=== PATIENT | female | born 1940 | race Caucasian/White ===

== ENCOUNTER 2016-10-19 09:24 | Outpatient (CLI) | payer MEDICARE, OTHER | END 2016-10-19 09:25 | disposition home or self-care (01) | DX: E78.2 Mixed hyperlipidemia (principal); E03.9 Hypothyroidism, unspecified; I10 Essential (primary) hypertension; K21.9 Gastro-esophageal reflux disease without esophagitis; Z79.899 Other long term (current) drug therapy ==

== ENCOUNTER 2016-11-14 06:58 | Outpatient (CLI) | payer MEDICARE, OTHER ==
--- NOTE | 2016-11-14 08:51 | CARDIAC PROCEDURE NOTE ---
DATE OF SERVICE: 11/14/2016 00:00:00 PROCEDURE: Jesus protocol treadmill for echocardiographic imaging. INDICATIONS: A 76-year-old lady with atypical exertional shoulder and arm pain. DETAILS OF PROCEDURE: The patient was exercised in the standard fashion on the Jesus protocol for 6 m inutes. Procedure was terminated because of significant hypertensive response with a systolic pressur e of 220. She did achieve 85% maximum predicted heart rate. She experienced no symptoms. Her EKG demo nstrated no significant ST segment changes. There was no significant ectopy. IMPRESSION 1. Exercise treadmill negative for evidence of ischemia. See echocardiographic report for details. 2. Severe hypertensive response to exercise. This can only in part be attributed to the temporary lac [place] of beta blockade and she should be offered more aggressive blood pressure management. JOB #: [id number] EXT JOB #:[id number]
--- NOTE | 2016-11-14 09:13 | XRAY Report ---
TWO-VIEW CHEST: 11/14/2016 CLINICAL INDICATION: Bilateral shoulder pain, hypertension, nausea. FINDINGS: Frontal and lateral views of the chest are compared to previous CT of 10/18/2014. The car diac silhouette is within normal limits. The lungs are clear. No effusion or pneumothorax is presen t. IMPRESSION: NORMAL CHEST. JOB #: [id number] EXT JOB #:[id number]
[2016-11-15 19:15] VITALS: BP 182/84
== END 2016-11-14 06:59 | disposition home or self-care (01) ==
LOC: DI 06:58
PROVIDERS: ATTEND Internal Medicine
DX: M25.511 Pain in right shoulder (principal); M25.512 Pain in left shoulder; I10 Essential (primary) hypertension; R11.0 Nausea
CPT/HCPCS: 71020; 93350

== ENCOUNTER 2017-04-09 15:15 | Outpatient (CLI) | payer MEDICARE, OTHER | END 2017-04-09 15:16 | disposition home or self-care (01) | LOC: LAB.R 15:15 | PROVIDERS: ATTEND Physician Assistant Medical | DX: R89.9 Unspecified abnormal finding in specimens from other organs, systems and tissues (principal) | CPT/HCPCS: 85651; 86140 ==

== ENCOUNTER 2017-06-09 09:23 | Emergency (ER) | payer MEDICARE, OTHER ==
[2017-06-09 10:54] LABS: BILIRUBIN,URINE NEGATIVE (NEGATIVE)
[2017-06-09 10:55] VITALS: BP 182/66
[2017-06-09 10:55] LABS: UA CHARGE (STRIP ONLY) YES; UR CULTURE IF IND NOT INDICATED
--- NOTE | 2017-06-09 11:06 | ED Physician Documentation ---
PD HPI ABD PAIN - Stated complaint Stated Complaint: CONSTIPATION - Chief complaint Chief Complaint: Abd Pain - Additional information Additional information: 76-year-old female with history of chronic constipation presents with abdominal and rectal pain today in the setting of no bowel movements for 3-4 days. She has had some diarrhea 4 days ago which is not atypical for her, use some Vaseline and digital disimpaction at home to have a bowel movement and then did not have another since then. Her abdominal pain is lower abdomen cramping and less severe than her rectal pain. She had a bowel movement prior to my evaluation in the emergency department with resolution of her symptoms. She reports constipation for several years, and uses several different methods to control including stool softeners, fiber supplements, intermittent MiraLAX, enemas. She has had no fevers no vomiting no localizing abdominal pain. Review of Systems Ten Systems: 10 systems reviewed and negative Constitutional: reports: Reviewed and negative Cardiac: reports: Reviewed and negative Respiratory: reports: Reviewed and negative GI: reports: Reviewed and negative : reports: Reviewed and negative PD PAST MEDICAL HISTORY - Past Medical History Past Medical History: Yes Cardiovascular: Hypertension, High cholesterol Respiratory: None, Other Endocrine/Autoimmune: None, Systemic lupus erythematosus GI: GERD, Colon polyps : None HEENT: None Psych: Anxiety Musculoskeletal: None Derm: None - Past Surgical History General: Colonoscopy Ortho: Arthroscopic surgery /MANAGER OUTPATIENT: Hysterectomy, Other HEENT: Cataracts - Present Medications Home Medications: Ambulatory Orders Medication Instructions Recorded Confirmed Atorvastatin [Lipitor] 10 mg ORAL DAILY 09/21/13 06/09/17 Levothyroxine Sodium [Synthroid] 25 mg ORAL DAILY 09/21/13 06/09/17 Metoprolol Succinate [Toprol Xl] 100 mg PO BID 09/21/13 06/09/17 Omeprazole [PriLOSEC] 20 mg ORAL DAILY 09/21/13 06/09/17 Potassium Chloride [Klor-Con M15] 10 meq PO DAILY 09/21/13 06/09/17 hydroCHLOROthiazide 12.5 mg PO DAILY 09/21/13 06/09/17 [Hydrochlorothiazide] Lisinopril 40 mg PO DAILY 06/09/17 06/09/17 - Allergies Allergies/Adverse Reactions: Allergies Allergy/AdvReac Type Severity Reaction Status Date / Time Sulfa (Sulfonamide Allergy Unknown Verified 06/09/17 09:30 Antibiotics) - Social History Does the pt smoke?: No Smoking Status: Never smoker Does the pt drink ETOH?: No Does the pt have substance abuse?: No PD ED PE NORMAL - Vitals Vital signs reviewed: Yes - General General: Alert and oriented X 3, No acute distress - HEENT HEENT: PERRL - Neck Neck: Supple, no meningeal sign - Cardiac Cardiac: RRR, No murmur - Respiratory Respiratory: Clear bilaterally - Abdomen Abdomen: Normal bowel sounds, Soft, Non tender, Non distended - Derm Derm: Warm and dry - Extremities Extremities: No deformity - Neuro Neuro: Alert and oriented X 3 - Psych Psych: Normal mood, Normal affect Results - Vitals Vitals: Vital Signs - 24 hr 06/09/17 06/09/17 09:28 10:54 Temperature 36.4 C L 36.5 C Heart Rate 64 55 L Respiratory 18 15 Rate Blood Pressure 170/75 H 182/66 H O2 Saturation 99 97 Oxygen O2 Source Room air - Labs Labs: Laboratory Tests 06/09/17 10:40 Urine Color YELLOW Urine Clarity CLEAR Urine pH 7.0 Ur Specific [place] 1.015 Urine Protein NEGATIVE Urine Glucose (UA) NEGATIVE Urine Ketones NEGATIVE Urine Occult Blood NEGATIVE Urine Nitrite NEGATIVE Urine Bilirubin NEGATIVE Urine Urobilinogen 0.2 (NORMAL) Ur Leukocyte Esterase NEGATIVE Ur Microscopic Review NOT INDICATED Urine Culture Comments NOT INDICATED PD MEDICAL DECISION MAKING - ED course Complexity details: considered differential, d/w patient, d/w family ED course: 76-year-old female with long-standing constipation, reports that symptoms are similar to usual but she was having no success with her normal treatments at home and had significant pain in her rectum. She had a bowel movement in the emergency department with complete resolution of her symptoms, she was well- appearing with normal abdominal exam. She was hypertensive which she is aware of and will discuss with her primary care doctor she is having no symptoms related to this. I do not suspect significant intra-abdominal process Such as infection, cardiovascular disease, or bowel perforationgiven that her symptoms have totally resolved. Departure - Departure Disposition: 01 Home, Self Care Clinical Impression: Constipation Qualifiers: Constipation type: unspecified constipation type Qualified Code(s): K59.00 - Constipation, unspecified Condition: Good Instructions: ED Constipation Ch Follow-Up: Esther Odonnell PA-C [Primary Care Provider] - Comments: Return to the emergency department if you develop any new symptoms such as pain in 1 spot, severe pain, fevers, vomiting. You might try decreasing her fiber intake somewhat, sometimes too much fiber can cause constipation. Follow-up with your primary care doctor regarding your chronic constipation for further testing and recommendations.
== END 2017-06-09 11:14 | disposition home or self-care (01) ==
LOC: ED 09:23
DX: K59.00 Constipation, unspecified (principal); I10 Essential (primary) hypertension; E78.00 Pure hypercholesterolemia, unspecified; K21.9 Gastro-esophageal reflux disease without esophagitis; Z86.010 Personal history of colon polyps; M32.9 Systemic lupus erythematosus, unspecified
CPT/HCPCS: 81001; 81003; 87086; 99283

== ENCOUNTER 2017-06-10 10:26 | Outpatient (CLI) | payer MEDICARE, OTHER ==
[2017-06-10] MEDS ORDERED: IOPAMIDOL-300 100 ML VIAL ONE (10:46)
[2017-06-10 10:52] LABS: CREATININE 0.6 mg/dL (0.4-1.0)
[2017-06-10] MEDS ORDERED: IOPAMIDOL-300 100 ML VIAL IVP ONE (12:22)
--- NOTE | 2017-06-11 09:18 | CT Report ---
<H1.> EXAM: CT ANGIOGRAM CHEST, ABDOMEN AND PELVIS EXAM DATE: 06/10/2017 12:27 PM. CLINICAL HISTORY: Thoracic pain, hypertension, benign. COMPARISONS: CT chest from 10/18/2014. CT abdomen and pelvis from 10/12/2013. Chest x-ray from 2006. TECHNIQUE: Routine axial helical CT angiographic imaging was performed through the chest, abdomen, and pelvis. I V Contrast: 100 mL of Isovue-300. Reconstructions: Coronal, sagittal, and 3D MIP reconstructions of t he aorta. In accordance with CT protocol optimization, one or more of the following dose reduction techniques w ere utilized for this exam: automated exposure control, adjustment of mA and/or KV based on patient s ize, or use of iterative reconstructive technique. FINDINGS: Vascular Structures: Thoracic aorta is normal in caliber. No aneurysm or dissection. Maximal size of the mid ascending aorta measures 2.8-2.9 cm. Maximal size of the aortic arch measures 2.2-2.3 cm. Mid descending thoracic aorta measures up to 2.6-2.7 cm. Calcified and noncalcified plaque is seen in th e aortic arch and descending thoracic aorta. Noncalcified plaque is seen in the proximal left subclav cookie artery without severe stenosis. No dissection. No evidence of pulmonary embolus. No evidence of a bdominal aortic aneurysm or dissection. Abdominal aorta below the SMA measures 1.7-1.8 cm. Abdominal aorta proximal to the aortic bifurcation measures 1.3-1.4 cm. Calcified and noncalcified plaque is se en in the abdominal aorta. Mesenteric vasculature is widely patent. Renal arteries are patent without stenosis. Calcified and noncalcified plaque is seen in the common iliac vessels. No dissection or oc clusion. Lungs/Pleura: Basilar scar/atelectasis. No endobronchial obstruction or consolidation. No pneumothora x or pleural effusions. No parenchymal cavities. 2 mm nodule in the left lower lobe is stable. Mediastinum: Visualized thyroid gland demonstrates a heterogeneous right thyroid lobe nodule measurin g approximate 7 mm as well as a 9 mm nodule in the left inferior lobe of the thyroid gland. Several s ubcentimeter lymph nodes are seen as well as hilar lymph nodes are seen, the largest right paratrache al measuring 7 mm in short axis dimension. No enlarged inferior cervical or axillary lymph nodes are evident. Heart is mildly enlarged. Trace pericardial effusion. Abdominal Organs: No hypervascular liver lesions. Within the left lobe of liver is a low-attenuation lesion measuring 8 mm which is again seen and unchanged, as well as an inferior right hepatic lobe le gino seen just cephalad to the right kidney which appears less prominent measuring on today's study 1 3 mm. Adrenals, spleen and pancreas are unremarkable. Kidneys enhance symmetrically. No nephrolithias is. No hydronephrosis. No ureteral dilatation or ureteral calculi. Peritoneal Cavity: Stomach is nondistended. Included portions of the small bowel are unremarkable. No bowel obstruction. Appendix is normal. Small volume of stool seen in the colon. No diverticulitis. N o enlarged mesenteric or retroperitoneal lymph nodes. No intra-abdominal fluid collections. Pelvic Organs: Include portions of the pelvis are unremarkable. The entire pelvis is not included. Bones: Degenerative changes are seen in the lower cervical and thoracic spine as well as the lumbar s pine. There is grade 1/2 anterolisthesis of L4 on L5 likely due to facet arthropathy. Most pronounced intervertebral disk degenerative changes are seen at L1-L2 and L5-S1. Mild levoscoliosis of the lumb ar spine. Other: None. IMPRESSION: 1. No evidence of thoracic aortic aneurysm, abdominal aortic aneurysm or iliac artery aneurysm. No or dissection. Calcified and noncalcified plaque in the aortic arch, descending thoracic aortic, abdome n and iliac vessels. No dissection. Patent mesenteric vasculatures and renal arteries without evidenc e for significant stenosis. 2. Subpleural 2 mm left lower lobe nodule, stable. No new parenchymal nodules. No consolidation. 3. Numerous subcentimeter mediastinal and hilar lymph nodes, stable. 4. Bilateral thyroid nodules of which the left thyroid lobe nodule was seen on 10/18/2014. If not pre viously assessed, particularly the right thyroid nodule which may be new, then further detail with [facility] ultrasound recommended. 5. Low-attenuation hepatic lesion stable in the left lobe and the posterior right lobe decreased in s ize. No new hepatic lesions. [facility] Referring Provider Line: [phone] SITE ID: [id number]
== END 2017-06-10 10:27 | disposition home or self-care (01) ==
LOC: LAB 10:26
PROVIDERS: ATTEND Physician Assistant Medical
DX: M54.6 Pain in thoracic spine (principal); I10 Essential (primary) hypertension; R07.9 Chest pain, unspecified
CPT/HCPCS: 36415; 71275; 74175; 82565; 84520; Q9967

== ENCOUNTER 2017-06-27 11:54 | Outpatient (CLI) | payer MEDICARE, OTHER ==
--- NOTE | 2017-06-28 08:50 | Ultrasound Report ---
THYROID ULTRASOUND: 06/27/2017 CLINICAL INDICATION: Multiple nodules incidentally noted on chest CT 2016. TECHNIQUE: Real-time scanning was performed with account services representative static images obtained. FINDINGS: The right lobe measures 4.1 x 1.7 x 1.3 cm, and the left lobe measures 4.0 x 1.4 x 1.1 cm. The isthmus measures 2 mm. There are multiple bilateral thyroid nodules, measuring up to 1.4 cm on the right and 1.4 cm on the left. No adenopathy is identified. IMPRESSION: Multinodular thyroid. By LULU criteria, no fine needle aspiration is recommended at this time. TD: 06/27/2017 18:49 ABRAHAM
== END 2017-06-27 11:55 | disposition home or self-care (01) ==
LOC: DI 11:54
PROVIDERS: ATTEND Physician Assistant Medical
DX: E04.2 Nontoxic multinodular goiter (principal)
CPT/HCPCS: 76536

== ENCOUNTER 2017-10-24 09:12 | Outpatient (CLI) | payer MEDICARE, OTHER ==
[2017-10-24 18:15] LABS: ALBUMIN 4.6 g/dL (3.2-5.5); ALBUMIN/GLOBULIN RATIO 1.7 (1.0-2.2); ALKALINE PHOSPHATASE 61 IU/L (42-121); ALT ALANINE AMINOTRANSFERASE 25 IU/L (10-60); AST ASPARTATE AMINOTRANSFERASE 28 IU/L (10-42); BILIRUBIN,TOTAL 0.5 mg/dL (0.2-1.0); BUN - BLOOD UREA NITROGEN 15 mg/dL (6-20); CALCIUM 9.8 mg/dL (8.5-10.3); CARBON DIOXIDE - CO2 27 mmol/L (21-32); CHLORIDE 98 mmol/L (101-111); CHOL/HDL RATIO 3.5 (<4.4); CHOLESTEROL 176 mg/dL; CREATININE 0.7 mg/dL (0.4-1.0); GFR - MDRD 82 (>89); GLUCOSE 101 mg/dL (70-100); HDL CHOLESTEROL 50 mg/dL; LDL CHOLESTEROL,CALCULATED 107 mg/dL; LDL/HDL RATIO 2.1 (<4.4); SODIUM 133 mmol/L (135-145); TOTAL PROTEIN 7.3 g/dL (6.7-8.2); VLDL CHOLESTEROL 19 mg/dL
[2017-10-24 18:19] LABS: BASOPHILS # (AUTO) 0.1 10^3/uL (0.0-0.1); BASOPHILS % (AUTO) 1.3 %; EOSINOPHILS # (AUTO) 0.4 10^3/uL (0.0-0.7); HGB - HEMOGLOBIN 13.2 g/dL (12.0-16.0); LYMPHOCYTES # (AUTO) 2.2 10^3/uL (1.5-3.5); LYMPHOCYTES % (AUTO) 33.8 %; MEAN CORPUSCULAR HEMOGLOBIN 31.8 pg (27.0-31.0); MEAN CORPUSCULAR HGB CONC 33.6 g/dL (32.0-36.0); MEAN CORPUSCULAR VOLUME 94.5 fL (81.0-99.0); MEAN PLATELET VOLUME 9.5 fL (7.9-10.8); MONOCYTES # (AUTO) 0.5 10^3/uL (0.0-1.0); MONOCYTES % (AUTO) 7.2 %; NEUTROPHILS # (AUTO) 3.2 10^3/uL (1.5-6.6); NEUTROPHILS % (AUTO) 50.7 %; PLT - PLATELET COUNT 215 10^3/uL (130-450); RED BLOOD COUNT 4.17 10^6/uL (4.20-5.40); RED CELL DISTRIBUTION WIDTH 12.4 % (12.0-15.0); WHITE BLOOD COUNT 6.4 x10^3/uL (4.8-10.8)
== END 2017-10-24 09:13 | disposition home or self-care (01) ==
LOC: LAB.F 09:12
PROVIDERS: ATTEND Physician Assistant Medical
DX: I10 Essential (primary) hypertension (principal); Z79.899 Other long term (current) drug therapy; E78.2 Mixed hyperlipidemia; E03.9 Hypothyroidism, unspecified
CPT/HCPCS: 36415; 80053; 80061; 83721; 84443; 85025

== ENCOUNTER 2018-02-20 14:11 | Outpatient (CLI) | payer MEDICARE, OTHER | END 2018-02-20 14:12 | disposition home or self-care (01) | LOC: LAB 14:11 | PROVIDERS: ATTEND Physician Assistant Medical | DX: L93.0 Discoid lupus erythematosus (principal) | CPT/HCPCS: 36415; 82550; 86225 ==

== ENCOUNTER 2018-03-05 13:16 | Outpatient (CLI) | payer MEDICARE, OTHER ==
--- NOTE | 2018-03-05 15:43 | XRAY Report ---
Reason: DYSPHAGIA Procedure Date: 03/05/2018 Accession Number: [id number] / [id number] Procedure: FL - Modified Barium Swallow W/SP CPT Code: FULL RESULT: EXAM: MODIFIED BARIUM SWALLOW EXAM DATE: 03/05/2018 02:02 PM. CLINICAL HISTORY: Dysphagia. COMPARISON: None. TECHNIQUE: Under the direction of speech pathology, patient swallowed various consistencies of barium under lateral fluoroscopic observation of the neck. Fluoroscopy Time: 1 minute, 10 seconds. Number of Images: 61. FINDINGS: Swallowing Mechanism: Normal oral phase and swallowing reflex. Airway Protection: Mildly delayed epiglottic motion. No episodes of tracheal penetration or aspiration with all consistencies of barium. Pharynx: Normal. No significant vallecular or piriform sinus contrast pooling. Other: None. IMPRESSION: No aspiration. [facility]
== END 2018-03-05 13:17 | disposition home or self-care (01) ==
LOC: DI 13:16
PROVIDERS: ATTEND Surgery
DX: R13.10 Dysphagia, unspecified (principal)
CPT/HCPCS: 74230; 92611; G8996; G8997; G8998

== ENCOUNTER 2018-03-13 09:45 | Outpatient (CLI) | payer MEDICARE, OTHER | END 2018-03-13 09:46 | LOC: LAB.R 09:45 | PROVIDERS: ATTEND Physician Assistant Medical | DX: R74.9 Abnormal serum enzyme level, unspecified (principal) | CPT/HCPCS: 82550 ==

== ENCOUNTER 2018-04-04 08:04 | Outpatient (CLI) | payer MEDICARE, OTHER ==
[2018-04-04 12:51] LABS: CHOL/HDL RATIO 3.5 (<4.4); CHOLESTEROL 212 mg/dL; HDL CHOLESTEROL 60 mg/dL; LDL CHOLESTEROL,CALCULATED 134 mg/dL; LDL/HDL RATIO 2.2 (<4.4); VLDL CHOLESTEROL 18 mg/dL
== END 2018-04-04 08:05 | disposition home or self-care (01) ==
LOC: LAB.R 08:04
PROVIDERS: ATTEND Physician Assistant Medical
DX: Z79.899 Other long term (current) drug therapy (principal); E78.2 Mixed hyperlipidemia
CPT/HCPCS: 80061; 83721

== ENCOUNTER 2018-09-22 09:11 | Outpatient (CLI) | payer MEDICARE, OTHER ==
[2018-09-22 18:05] LABS: BASOPHILS # (AUTO) 0.1 10^3/uL (0.0-0.1); BASOPHILS % (AUTO) 1.2 %; EOSINOPHILS # (AUTO) 0.6 10^3/uL (0.0-0.7); EOSINOPHILS % (AUTO) 9.3 %; HGB - HEMOGLOBIN 13.5 g/dL (12.0-16.0); LYMPHOCYTES % (AUTO) 30.9 %; MEAN CORPUSCULAR HEMOGLOBIN 32.2 pg (27.0-31.0); MEAN CORPUSCULAR HGB CONC 33.7 g/dL (32.0-36.0); MEAN CORPUSCULAR VOLUME 95.6 fL (81.0-99.0); MEAN PLATELET VOLUME 9.5 fL (7.9-10.8); MONOCYTES # (AUTO) 0.4 10^3/uL (0.0-1.0); MONOCYTES % (AUTO) 6.5 %; NEUTROPHILS # (AUTO) 3.4 10^3/uL (1.5-6.6); NEUTROPHILS % (AUTO) 52.1 %; PLT - PLATELET COUNT 213 10^3/uL (130-450); RED BLOOD COUNT 4.19 10^6/uL (4.20-5.40); RED CELL DISTRIBUTION WIDTH 12.8 % (12.0-15.0); WHITE BLOOD COUNT 6.5 x10^3/uL (4.8-10.8)
[2018-09-22 18:26] LABS: BUN - BLOOD UREA NITROGEN 17 mg/dL (6-20); CARBON DIOXIDE - CO2 29 mmol/L (21-32); CHLORIDE 97 mmol/L (101-111); CREATININE 0.6 mg/dL (0.4-1.0); GFR - MDRD 97 (>89); GLUCOSE 101 mg/dL (70-100); SODIUM 134 mmol/L (135-145)
[2018-09-22 18:56] LABS: HB2 TOTAL 14.4 g/dL; HEMOGLOBIN A1C 0.51 g/dL; HEMOGLOBIN A1C % 5.4 % (4.6-6.2)
[2018-09-22 19:17] LABS: CRP - C-REACTIVE PROTEIN < 1.0 mg/dL (0-1.0)
== END 2018-09-22 09:12 | disposition home or self-care (01) ==
LOC: LAB.F 09:11
PROVIDERS: ATTEND Ophthalmology
DX: E11.3593 Type 2 diabetes mellitus with proliferative diabetic retinopathy without macular edema, bilateral (principal)
CPT/HCPCS: 36415; 80051; 82565; 82947; 83036; 84520; 85025; 85651; 86140

== ENCOUNTER 2018-12-14 09:52 | Emergency (ER) | payer MEDICARE, OTHER ==
[2018-12-14 11:05] LABS: BASOPHILS % (AUTO) 0.8 %; EOSINOPHILS % (AUTO) 12.3 %; HGB - HEMOGLOBIN 13.7 g/dL (12.0-16.0); LYMPHOCYTES % (AUTO) 21.7 %; MEAN CORPUSCULAR HEMOGLOBIN 32.6 pg (27.0-31.0); MEAN CORPUSCULAR HGB CONC 34.7 g/dL (32.0-36.0); MEAN PLATELET VOLUME 8.9 fL (7.9-10.8); MONOCYTES % (AUTO) 5.9 %; NEUTROPHILS % (AUTO) 59.3 %; PLT - PLATELET COUNT 182 10^3/uL (130-450); RED CELL DISTRIBUTION WIDTH 12.8 % (12.0-15.0); WHITE BLOOD COUNT 12.3 x10^3/uL (4.8-10.8)
[2018-12-14 11:08] LABS: ABNORMAL LYMPHS % (MANUAL) 0 %; BAND NEUTROPHILS % (MANUAL) 0 %
[2018-12-14 11:16] LABS: ALBUMIN 3.5 g/dL (3.2-5.5); ALBUMIN/GLOBULIN RATIO 1.3 (1.0-2.2); BILIRUBIN,TOTAL 0.6 mg/dL (0.2-1.0); CALCIUM 9.3 mg/dL (8.5-10.3); CREATININE 0.6 mg/dL (0.4-1.0); TOTAL PROTEIN 6.1 g/dL (6.7-8.2)
[2018-12-14 11:32] LABS: BASOPHILS # (MANUAL) 0.1 10^3/uL (0-0.1); BASOPHILS % (MANUAL) 1 %; EOSINOPHILS # (MANUAL) 2.2 10^3/uL (0-0.7); LYMPHOCYTES # (MANUAL) 2.6 10^3/uL (1.5-3.5); LYMPHOCYTES % (MANUAL) 21 %; NEUTROPHILS # (MANUAL) 6.4 10^3/uL (1.5-6.6); NEUTROPHILS % (MANUAL) 52 %; RBC MORPHOLOGY (MULTIPLE) NORMAL APPEARANCE (NORMAL)
[2018-12-14 11:33] LABS: DIFFERENTIAL COMMENT MANUAL DIFFERENTIAL; PLATELET ESTIMATE, MANUAL NORMAL (130-450,000) (NORMAL); PLATELET MORPHOLOGY NORMAL APPEARANCE (NORMAL)
--- NOTE | 2018-12-14 11:47 | ED Physician Documentation ---
PD HPI NVD - Stated complaint Stated Complaint: DIARRHEA - Chief complaint Chief Complaint: General - History obtained from History obtained from: Patient, Family - History of Present Illness Timing - onset: How many days ago (11) Timing - duration: Days (11) Timing - details: Gradual onset, Still present Associated symptoms: Dizzy Contributing factors: No: Sick contact, Bad food, Travel, Recent antibiotics, Alcohol use Similar symptoms before: Diagnosis (gastroenteritis) Recently seen: Not recently seen - Additonal information Additional information: 78-year-old female with a prior history of autoimmune disease with lupus has developed diarrhea about 11 days ago and this is persisted. She felt that this would resolve and since it is not she is come to the emergency department for evaluation. She is taken some Imodium which does help with the diarrhea but she continues to have diarrhea otherwise. She was on some Plaquenil for autoimmune disease and she discontinued that about 1 week ago with concerns that it may have something to do with her diarrhea. The diarrhea did not change.The patient has not noted any blood in the diarrhea and she does not otherwise feel ill. She has had some slight nausea she is vomited twice. Review of Systems Constitutional: reports: Fatigue. denies: Fever, Chills, Myalgias Eyes: denies: Decreased vision Ears: denies: Ear pain Nose: denies: Rhinorrhea / runny nose, Congestion Throat: denies: Sore throat Cardiac: denies: Chest pain / pressure, Palpitations Respiratory: denies: Dyspnea, Cough GI: reports: Nausea, Vomiting, Diarrhea. 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, Other HEENT: Cataracts - Present Medications Home Medications: Ambulatory Orders Medication Instructions Recorded Confirmed Atorvastatin [Lipitor] 10 mg ORAL DAILY 09/21/13 06/09/17 Levothyroxine Sodium [Synthroid] 25 mg ORAL DAILY 09/21/13 06/09/17 Metoprolol Succinate [Toprol Xl] 100 mg PO BID 09/21/13 06/09/17 Omeprazole [PriLOSEC] 20 mg ORAL DAILY 09/21/13 06/09/17 Potassium Chloride [Klor-Con M15] 10 meq PO DAILY 09/21/13 06/09/17 hydroCHLOROthiazide 12.5 mg PO DAILY 09/21/13 06/09/17 [Hydrochlorothiazide] Lisinopril 40 mg PO DAILY 06/09/17 06/09/17 Azithromycin [Zithromax] 250 mg PO DAILY #6 tablet 12/14/18 Hydroxychloroquine [Plaquenil] 200 mg PO DAILY 12/14/18 12/14/18 predniSONE [Prednisone] 5 mg PO 12/14/18 - Allergies Allergies/Adverse Reactions: Allergies Allergy/AdvReac Type Severity Reaction Status Date / Time Sulfa (Sulfonamide Allergy Unknown Verified 12/14/18 10:10 Antibiotics) - Social History Does the pt smoke?: No Smoking Status: Never smoker Does the pt drink ETOH?: No Does the pt have substance abuse?: No PD ED PE NORMAL - Vitals Vital signs reviewed: Yes (normal ) - General General: Alert and oriented X 3, No acute distress, Well developed/nourished - HEENT HEENT: Atraumatic, PERRL, EOMI, Other (dry mucous membranes) - Cardiac Cardiac: RRR, No murmur - Respiratory Respiratory: No respiratory distress, Clear bilaterally - Abdomen Abdomen: Soft, Non tender - Back Back: No CVA TTP, No spinal TTP - Derm Derm: Normal color, Warm and dry, No rash - Extremities Extremities: No deformity, No edema - Neuro Neuro: Alert and oriented X 3, car rental sales assistant 2-12 intact, No motor deficit, No sensory deficit, Normal speech Eye Opening: Spontaneous Motor: Obeys Commands Verbal: Oriented GCS Score: 15 - Psych Psych: Normal mood, Normal affect Results - Vitals Vitals: Vital Signs - 24 hr 12/14/18 12/14/18 10:05 12:43 Temperature 37.0 C Heart Rate 76 61 Respiratory 18 12 Rate Blood Pressure 121/72 141/47 H O2 Saturation 97 97 Oxygen O2 Source Room air - Labs Labs: Laboratory Tests 12/14/18 12/14/18 12/14/18 10:56 10:56 12:35 WBC 12.3 H RBC 4.20 Hgb 13.7 Hct 39.4 MCV 94.0 MCH 32.6 H MCHC 34.7 RDW 12.8 Plt Count 182 MPV 8.9 Neut # (Auto) Not Reportable Lymph # (Auto) Not Reportable [place] # (Auto) Not Reportable Eos # (Auto) Not Reportable Baso # (Auto) Not Reportable Absolute Nucleated RBC Not Reportable Total Counted 100 Band Neuts % (Manual) 0 Abnorm Lymph % (Manual) 0 Nucleated RBC % Not Reportable Neutrophils # (Manual) 6.4 Lymphocytes # (Manual) 2.6 Monocytes # (Manual) 1.0 Eosinophils # (Manual) 2.2 H Basophils # (Manual) 0.1 Differential Comment MANUAL DIFFERENTIAL Platelet Estimate NORMAL (130-450,000) Platelet Morphology NORMAL APPEARANCE RBC Morph Micro Appear NORMAL APPEARANCE Sodium 138 Potassium 3.4 L Chloride 104 Carbon Dioxide 24 Anion Gap 10.0 BUN 11 Creatinine 0.6 Estimated GFR (MDRD) 97 Glucose 98 Calcium 9.3 Total Bilirubin 0.6 AST 17 ALT 15 Alkaline Phosphatase 66 Total Protein 6.1 L Albumin 3.5 Globulin 2.6 Albumin/Globulin Ratio 1.3 Lipase 24 Urine Color LT. YELLOW Urine Clarity CLEAR Urine pH 6.0 Ur Specific [place] <=1.005 Urine Protein NEGATIVE Urine Glucose (UA) NEGATIVE Urine Ketones NEGATIVE Urine Occult Blood NEGATIVE Urine Nitrite NEGATIVE Urine Bilirubin NEGATIVE Urine Urobilinogen 0.2 (NORMAL) Ur Leukocyte Esterase NEGATIVE Ur Microscopic Review NOT INDICATED Urine Culture Comments NOT INDICATED Procedures - IVC sono (time) 1140 Bedside IVC sono: IVC measures (cm) (0.93), IVC collapsed c insp (cm) (complete), Dehydration (est 2 liter deficit) PD MEDICAL DECISION MAKING - ED course Complexity details: reviewed old records, reviewed results, re-evaluated patient, considered differential, d/w patient, d/w family ED course: 78 y/o female with an 11 day history of diarrhea is dehydrated and saline is begun. She is unable to provide a stool specimen and is hydrated here in the ED. On further history she has been chicken sitting the week before this all started and she did eat the eggs. We will do empiric antibiotic therapy with azithro with the thought of Campy as a potential cause after chicken sitting. She will continue her immodium as needed and follow up with her primary if she does not have resolution in the next 5 days. Departure - Departure Disposition: Home, Self Care Clinical Impression: Diarrhea Qualifiers: Diarrhea type: presumed infectious Qualified Code(s): R19.7 - Diarrhea, unspecified Condition: Stable Instructions: ED Diarrhea Bacterial Follow-Up: Jose Luis Menard MD [Primary Care Provider] - Prescriptions: Azithromycin [Zithromax] 250 mg PO DAILY #6 tablet
[2018-12-14 12:47] LABS: BILIRUBIN,URINE NEGATIVE (NEGATIVE); CLARITY,URINE CLEAR (CLEAR); GLUCOSE, URINE (UA) NEGATIVE (NEGATIVE); KETONES,URINE (UA) NEGATIVE (NEGATIVE); LEUKOCYTE ESTERASE, URINE NEGATIVE (NEGATIVE); NITRITE,URINE NEGATIVE (NEGATIVE); OCCULT BLOOD,URINE NEGATIVE (NEGATIVE); PROTEIN,URINE NEGATIVE (NEGATIVE); UROBILINOGEN,URINE 0.2 (NORMAL) E.U./dL (NORMAL)
[2018-12-14] MEDS ORDERED: POTASSIUM CHLORIDE 20 MEQ TABLET PO STA (13:32)
[2018-12-14 15:23] VITALS: BP 124/59
== END 2018-12-14 15:26 | disposition home or self-care (01) ==
LOC: ED 09:52
DX: R19.7 Diarrhea, unspecified (principal); R11.2 Nausea with vomiting, unspecified; E86.0 Dehydration; M32.9 Systemic lupus erythematosus, unspecified; I10 Essential (primary) hypertension
CPT/HCPCS: 36415; 80053; 81003; 83690; 85025; 99283; A9270; 81001; 87086

== ENCOUNTER 2018-12-19 10:26 | Outpatient (CLI) | payer MEDICARE, OTHER | END 2018-12-19 10:27 | disposition home or self-care (01) | LOC: LAB 10:26 | PROVIDERS: ATTEND Surgery | DX: R19.7 Diarrhea, unspecified (principal) ==

== ENCOUNTER 2018-12-22 08:00 | Outpatient (CLI) | payer MEDICARE, OTHER | END 2018-12-22 08:01 | disposition home or self-care (01) | LOC: LAB.R 08:00 | PROVIDERS: ATTEND Surgery | DX: R19.7 Diarrhea, unspecified (principal) | CPT/HCPCS: 81599; 83630; 87045; 87046; 87177; 87209; 87329; 87493 ==

== ENCOUNTER 2018-12-23 11:00 | Outpatient (CLI) | payer MEDICARE, OTHER | END 2018-12-23 23:59 | disposition home or self-care (01) | LOC: LAB.R 11:00 | PROVIDERS: ATTEND Surgery | DX: R19.7 Diarrhea, unspecified (principal) | CPT/HCPCS: 82270 ==

== ENCOUNTER 2019-01-07 09:59 | Day surgery (SDC) | payer MEDICARE, OTHER ==
[2019-01-07] MEDS ORDERED: LACTATED RINGERS 1,000 ML IV ONE (10:04)
[2019-01-07] MEDS ORDERED: MIDAZOLAM 2 MG/2 ML VIAL IVP ONE (11:48)
[2019-01-07] MEDS ORDERED: fentaNYL 250 MCG/5 ML VIAL IVP ONE (11:48)
[2019-01-07 13:39] VITALS: BP 140/51
== END 2019-01-07 10:00 | disposition home or self-care (01) ==
LOC: SDS 09:59
PROVIDERS: ATTEND Surgery
PROC: 0DBL8ZX Excision of Transverse Colon, Via Natural or Artificial Opening Endoscopic, Diagnostic (ICD-10-PCS; 2019-01-07)
PROC: 0DBN8ZX Excision of Sigmoid Colon, Via Natural or Artificial Opening Endoscopic, Diagnostic (ICD-10-PCS; 2019-01-07)
PROC: 0DBK8ZX Excision of Ascending Colon, Via Natural or Artificial Opening Endoscopic, Diagnostic (ICD-10-PCS; principal; 2019-01-07 10:30)
DX: R19.7 Diarrhea, unspecified (principal); R10.9 Unspecified abdominal pain; K64.8 Other hemorrhoids; K64.4 Residual hemorrhoidal skin tags; I10 Essential (primary) hypertension; Z86.010 Personal history of colon polyps; Z87.19 Personal history of other diseases of the digestive system; Z79.899 Other long term (current) drug therapy
CPT/HCPCS: 45380; 81599; 83630; 87045; 87046; 87177; 87209; 87493; J3010; J7120

== ENCOUNTER 2019-06-29 10:39 | Outpatient (CLI) | payer MEDICARE, OTHER ==
[2019-06-29 11:02] LABS: BASOPHILS # (AUTO) 0.1 10^3/uL (0.0-0.1); BASOPHILS % (AUTO) 0.9 %; EOSINOPHILS # (AUTO) 0.5 10^3/uL (0.0-0.7); EOSINOPHILS % (AUTO) 8.4 %; HGB - HEMOGLOBIN 12.8 g/dL (12.0-16.0); LYMPHOCYTES # (AUTO) 2.5 10^3/uL (1.5-3.5); LYMPHOCYTES % (AUTO) 45.4 %; MEAN CORPUSCULAR HEMOGLOBIN 31.9 pg (27.0-31.0); MEAN CORPUSCULAR VOLUME 93.8 fL (81.0-99.0); MEAN PLATELET VOLUME 10.5 fL (7.9-10.8); MONOCYTES # (AUTO) 0.4 10^3/uL (0.0-1.0); MONOCYTES % (AUTO) 7.3 %; NEUTROPHILS # (AUTO) 2.1 10^3/uL (1.5-6.6); NEUTROPHILS % (AUTO) 37.8 %; PLT - PLATELET COUNT 206 10^3/uL (130-450); RED BLOOD COUNT 4.01 10^6/uL (4.20-5.40); RED CELL DISTRIBUTION WIDTH 12.3 % (12.0-15.0); WHITE BLOOD COUNT 5.5 x10^3/uL (4.8-10.8)
[2019-06-29 11:25] LABS: ALBUMIN 4.7 g/dL (3.2-5.5); ALKALINE PHOSPHATASE 56 IU/L (42-121); ALT ALANINE AMINOTRANSFERASE 20 IU/L (10-60); AST ASPARTATE AMINOTRANSFERASE 25 IU/L (10-42); BILIRUBIN,TOTAL 0.6 mg/dL (0.2-1.0); BUN - BLOOD UREA NITROGEN 17 mg/dL (6-20); CALCIUM 9.6 mg/dL (8.5-10.3); CARBON DIOXIDE - CO2 28 mmol/L (21-32); CHLORIDE 99 mmol/L (101-111); CHOL/HDL RATIO 3.5 (<4.4); CHOLESTEROL 254 mg/dL; CREATININE 0.7 mg/dL (0.4-1.0); GFR - MDRD 81 (>89); GLUCOSE 88 mg/dL (70-100); HDL CHOLESTEROL 72 mg/dL; LDL CHOLESTEROL,CALCULATED 159 mg/dL; LDL/HDL RATIO 2.2 (<4.4); SODIUM 134 mmol/L (135-145); VLDL CHOLESTEROL 23 mg/dL
== END 2019-06-29 10:40 | disposition home or self-care (01) ==
LOC: LAB 10:39
PROVIDERS: ATTEND Nurse Practitioner
DX: Z79.899 Other long term (current) drug therapy (principal); E04.2 Nontoxic multinodular goiter; E03.9 Hypothyroidism, unspecified; I10 Essential (primary) hypertension; M85.80 Other specified disorders of bone density and structure, unspecified site; K44.9 Diaphragmatic hernia without obstruction or gangrene; E78.2 Mixed hyperlipidemia
CPT/HCPCS: 36415; 80053; 80061; 82306; 83721; 84443; 85025

== ENCOUNTER 2020-05-19 13:20 | Outpatient (CLI) | payer MEDICARE, OTHER | END 2020-05-19 13:21 | disposition home or self-care (01) | LOC: DI 13:20 | PROVIDERS: ATTEND Nurse Practitioner | DX: I51.7 Cardiomegaly (principal); R93.1 Abnormal findings on diagnostic imaging of heart and coronary circulation | CPT/HCPCS: 93306 ==

== ENCOUNTER 2021-03-15 10:24 | Outpatient (CLI) | payer MEDICARE, OTHER ==
[2021-03-15 15:15] LABS: BASOPHILS # (AUTO) 0.1 10^3/uL (0.0-0.1); BASOPHILS % (AUTO) 1.5 %; EOSINOPHILS # (AUTO) 0.5 10^3/uL (0.0-0.7); EOSINOPHILS % (AUTO) 9.6 %; HCT - HEMATOCRIT 37.5 % (37.0-47.0); HGB - HEMOGLOBIN 12.6 g/dL (12.0-16.0); LYMPHOCYTES # (AUTO) 1.8 10^3/uL (1.5-3.5); LYMPHOCYTES % (AUTO) 34.1 %; MEAN CORPUSCULAR HEMOGLOBIN 31.9 pg (27.0-31.0); MEAN CORPUSCULAR HGB CONC 33.6 g/dL (32.0-36.0); MEAN CORPUSCULAR VOLUME 94.9 fL (81.0-99.0); MEAN PLATELET VOLUME 11.9 fL (7.9-10.8); MONOCYTES # (AUTO) 0.5 10^3/uL (0.0-1.0); MONOCYTES % (AUTO) 8.3 %; NEUTROPHILS # (AUTO) 2.5 10^3/uL (1.5-6.6); NEUTROPHILS % (AUTO) 46.3 %; PLT - PLATELET COUNT 201 10^3/uL (130-450); RED BLOOD COUNT 3.95 10^6/uL (4.20-5.40); WHITE BLOOD COUNT 5.4 x10^3/uL (4.8-10.8)
[2021-03-15 15:45] LABS: ALBUMIN 4.5 g/dL (3.2-5.5); ALBUMIN/GLOBULIN RATIO 1.9 (1.0-2.2); ALKALINE PHOSPHATASE 66 IU/L (42-121); ALT ALANINE AMINOTRANSFERASE 19 IU/L (10-60); AST ASPARTATE AMINOTRANSFERASE 23 IU/L (10-42); BILIRUBIN,TOTAL 0.7 mg/dL (0.2-1.0); BUN - BLOOD UREA NITROGEN 16 mg/dL (6-20); CALCIUM 9.8 mg/dL (8.5-10.3); CARBON DIOXIDE - CO2 27 mmol/L (21-32); CHLORIDE 98 mmol/L (101-111); CHOL/HDL RATIO 2.9 (<4.4); CHOLESTEROL 176 mg/dL; CREATININE 0.7 mg/dL (0.4-1.0); GFR - MDRD 81 (>89); GLUCOSE 90 mg/dL (70-100); HDL CHOLESTEROL 61 mg/dL; LDL CHOLESTEROL,CALCULATED 92 mg/dL; LDL/HDL RATIO 1.5 (<4.4); SODIUM 134 mmol/L (135-145); TOTAL PROTEIN 6.9 g/dL (6.7-8.2); TRIGLYCERIDES 114 mg/dL; VLDL CHOLESTEROL 23 mg/dL
[2021-03-15 15:47] LABS: THYROID STIMULATING HORMONE 1.37 uIU/mL (0.34-5.60)
== END 2021-03-15 10:25 | disposition home or self-care (01) ==
LOC: LAB.S 10:24
PROVIDERS: ATTEND Physician Assistant Medical
DX: E78.2 Mixed hyperlipidemia (principal); E55.9 Vitamin D deficiency, unspecified; E03.9 Hypothyroidism, unspecified; K21.9 Gastro-esophageal reflux disease without esophagitis; Z79.899 Other long term (current) drug therapy
CPT/HCPCS: 36415; 80053; 80061; 82306; 83721; 84443; 85025

== ENCOUNTER 2021-03-30 15:33 | Outpatient (CLI) | payer MEDICARE, OTHER ==
--- NOTE | 2021-03-30 17:04 | Ultrasound Report ---
PROCEDURE: Head or Neck Soft Tissue INDICATIONS: CHRONIC HOARSENESS, HYPOTHYROIDISM TECHNIQUE: Real-time scanning was performed of the thyroid gland, with image documentation. COMPARISON: 06/27/2017 FINDINGS: Right: Thyroid lobe measures 4.0 x 1.6 x 1.4 cm, and contains a thyroid nodule. Left: Thyroid lobe measures 4.0 x 1.3 x 1.2 cm, and contains 2 thyroid nodules. Isthmus: 2 mm thick. Nodule number: 1 Location: Right lower pole Size: 1.6 x 1.3 x 1.3 cm, previously 1.4 x 1.1 x 0.7 cm. Composition: Solid Echogenicity: Isoechoic Shape: wider than tall. Margins: Lobulated Echogenic foci: None Total points: 5 ACR TI-RADS category: Moderately suspicious Nodule number: 2 Location: Left lower pole Size: 1.6 x 1.3 x 1.3 cm, previously 1.4 x 1.1 x 0.8 cm cm. Composition: Predominately cystic Echogenicity: Anechoic Shape: Wider than tall Margins: Smooth Echogenic foci: None Total points: 0 ACR TI-RADS category: Benign Nodule number: 3 Location: Left upper pole Size: 0.6 x 0.5 x 0.4 cm, previously 0.6 x 0.5 x 0.3 cm. Composition: Solid Echogenicity: Hypoechoic Shape: wider than tall. Margins: Lobulated Echogenic foci: None Total points: 6 ACR TI-RADS category: Moderately suspicious IMPRESSION: Multinodular thyroid. A nodule in the right lobe has increased in size since the prior s tudy of 4 years ago. It is moderately suspicious, with a maximum diameter of 1.6 cm. Recommend follow -up ultrasound of the thyroid in one years time. ACR TI-RADS definitions and recommendations: TI-RADS 1 (benign): 0 points. FNA not needed. TI-RADS 2 (not suspicious): 2 points. FNA not needed. TI-RADS 3 (mildly suspicious): 3 points. ? FNA if 2.5 cm or larger, follow up if 1.5 cm or larger (at 1, 3, and 5 years). TI-RADS 4 (moderately suspicious): 4-6 points. ? FNA if 1.5 cm or larger, follow up if 1 cm or larger (at 1, 2, 3, and 5 years). TI-RADS 5 (highly suspicious): 7 points or more. ? FNA if 1 cm or larger, follow up if 0.5 cm or larger (every year for 5 years). Reviewed by: Carlo Mcdonald MD on 03/30/2021 5:03 PM PDT Approved by: Carlo Mcdonald MD on 03/30/2021 5:03 PM PDT Station ID: [id number]
== END 2021-03-30 15:34 | disposition home or self-care (01) ==
LOC: DI 15:33
PROVIDERS: ATTEND Physician Assistant Medical
DX: E04.2 Nontoxic multinodular goiter (principal)

== ENCOUNTER 2021-05-25 11:34 | Outpatient (CLI) | payer MEDICARE, OTHER ==
--- NOTE | 2021-05-25 15:14 | XRAY Report ---
PROCEDURE: Chest 2 View X-Ray INDICATIONS: DYSPNEA ON EXERTION TECHNIQUE: 2 view(s) of the chest. COMPARISON: 11/14/2016. FINDINGS: Surgical changes and devices: None. Lungs and pleura: No pleural effusions or pneumothorax. Lungs are clear. Mediastinum: Mediastinal contours are normal. Heart size is normal. Bones and chest wall: No suspicious bony abnormalities. Soft tissues appear unremarkable. IMPRESSION: No acute cardiopulmonary disease process. Reviewed by: Christi Molina MD, PhD on 05/25/2021 3:12 PM PST Approved by: Christi Molina MD, PhD on 05/25/2021 3:12 PM PST Station ID: [id number]
== END 2021-05-25 11:35 | disposition home or self-care (01) ==
LOC: DI 11:34
PROVIDERS: ATTEND Physician Assistant Medical
DX: R06.09 Other forms of dyspnea (principal)

== ENCOUNTER 2021-10-15 13:09 | Outpatient (CLI) | payer MEDICARE, OTHER ==
[2021-10-15] MEDS ORDERED: ALBUTEROL 1 PUFF INH STA (16:17)
== END 2021-10-15 13:10 | disposition home or self-care (01) ==
LOC: RT 13:09
PROVIDERS: ATTEND Physician Assistant Medical
DX: R06.09 Other forms of dyspnea (principal)
CPT/HCPCS: 94060; 94729

== ENCOUNTER 2022-01-30 13:03 | Outpatient (CLI) | payer MEDICARE, OTHER | END 2022-01-30 13:04 | disposition home or self-care (01) | LOC: MAC.MOP 13:03 | PROVIDERS: ATTEND Physician Assistant Medical | DX: R00.2 Palpitations (principal) | CPT/HCPCS: 93246 ==

== ENCOUNTER 2022-03-09 09:42 | Outpatient (CLI) | payer MEDICARE, OTHER ==
[2022-03-09 09:52] LABS: BASOPHILS # (AUTO) 0.1 10^3/uL (0.0-0.1); BASOPHILS % (AUTO) 1.2 %; EOSINOPHILS # (AUTO) 0.5 10^3/uL (0.0-0.7); EOSINOPHILS % (AUTO) 7.8 %; HCT - HEMATOCRIT 37.8 % (37.0-47.0); HGB - HEMOGLOBIN 13.4 g/dL (12.0-16.0); LYMPHOCYTES # (AUTO) 1.8 10^3/uL (1.5-3.5); MEAN CORPUSCULAR HEMOGLOBIN 32.7 pg (27.0-31.0); MEAN CORPUSCULAR HGB CONC 35.4 g/dL (32.0-36.0); MEAN CORPUSCULAR VOLUME 92.2 fL (81.0-99.0); MEAN PLATELET VOLUME 10.1 fL (7.9-10.8); MONOCYTES # (AUTO) 0.5 10^3/uL (0.0-1.0); MONOCYTES % (AUTO) 9.2 %; NEUTROPHILS # (AUTO) 2.9 10^3/uL (1.5-6.6); NEUTROPHILS % (AUTO) 50.6 %; PLT - PLATELET COUNT 216 10^3/uL (130-450); RED CELL DISTRIBUTION WIDTH 12.2 % (12.0-15.0); WHITE BLOOD COUNT 5.7 x10^3/uL (4.8-10.8)
[2022-03-09 10:13] LABS: ALBUMIN 4.7 g/dL (3.2-5.5); ALBUMIN/GLOBULIN RATIO 1.7 (1.0-2.2); ALKALINE PHOSPHATASE 75 IU/L (42-121); ALT ALANINE AMINOTRANSFERASE 27 IU/L (10-60); AST ASPARTATE AMINOTRANSFERASE 32 IU/L (10-42); BILIRUBIN,TOTAL 0.6 mg/dL (0.2-1.0); BUN - BLOOD UREA NITROGEN 16 mg/dL (6-20); CALCIUM 10.2 mg/dL (8.5-10.3); CARBON DIOXIDE - CO2 28 mmol/L (21-32); CHLORIDE 97 mmol/L (101-111); CHOL/HDL RATIO 2.3 (<4.4); CHOLESTEROL 178 mg/dL; CREATININE 0.6 mg/dL (0.4-1.0); GFR - MDRD 96 (>89); GLUCOSE 98 mg/dL (70-100); HDL CHOLESTEROL 76 mg/dL; LDL CHOLESTEROL,CALCULATED 82 mg/dL; LDL/HDL RATIO 1.1 (<4.4); POTASSIUM 3.7 mmol/L (3.5-5.0); SODIUM 134 mmol/L (135-145); TOTAL PROTEIN 7.5 g/dL (6.7-8.2); TRIGLYCERIDES 102 mg/dL; VLDL CHOLESTEROL 20 mg/dL
[2022-03-09 10:23] LABS: THYROID STIMULATING HORMONE 2.07 uIU/mL (0.34-5.60)
== END 2022-03-09 09:43 | disposition home or self-care (01) ==
LOC: LAB 09:42
PROVIDERS: ATTEND Physician Assistant Medical
DX: E78.2 Mixed hyperlipidemia (principal); E03.9 Hypothyroidism, unspecified; R06.09 Other forms of dyspnea
CPT/HCPCS: 36415; 80053; 80061; 83721; 84443; 85025

== ENCOUNTER 2022-07-13 14:39 | Outpatient (CLI) | payer MEDICARE, OTHER ==
--- NOTE | 2022-07-13 15:43 | XRAY Report ---
PROCEDURE: Hip w/Pelvis 1V RT INDICATIONS: RIGHT HIP PAIN TECHNIQUE: AP pelvis with lateral view(s) of the right hip(s). COMPARISON: None. FINDINGS: Bones: No fractures or dislocations. Pelvic ring appears intact. No suspicious bony lesions. Mode rate right hip joint space narrowing. Femoral head has an appropriate to contour. No lytic or blastic lesions. Lower lumbar spine instrumentation. Soft tissues: The visualized bowel gas pattern is normal. No suspicious soft tissue calcifications. IMPRESSION: Moderate right hip joint space narrowing Reviewed by: Kleber Reed MD on 07/13/2022 2:41 PM AKST Approved by: Kleber Reed MD on 07/13/2022 2:41 PM AKST Station ID: [id number]
== END 2022-07-13 14:40 | disposition home or self-care (01) ==
LOC: DI.S 14:39
PROVIDERS: ATTEND Physician Assistant
DX: M25.851 Other specified joint disorders, right hip (principal)

== ENCOUNTER 2023-02-22 09:51 | Outpatient (CLI) | payer MEDICARE, OTHER ==
[2023-02-22 10:07] LABS: BASOPHILS # (AUTO) 0.1 10^3/uL (0.0-0.1); BASOPHILS % (AUTO) 1.2 %; EOSINOPHILS # (AUTO) 0.3 10^3/uL (0.0-0.7); EOSINOPHILS % (AUTO) 5.3 %; HCT - HEMATOCRIT 35.8 % (37.0-47.0); HGB - HEMOGLOBIN 12.5 g/dL (12.0-16.0); LYMPHOCYTES # (AUTO) 1.7 10^3/uL (1.5-3.5); LYMPHOCYTES % (AUTO) 34.8 %; MEAN CORPUSCULAR HEMOGLOBIN 32.6 pg (27.0-31.0); MEAN CORPUSCULAR HGB CONC 34.9 g/dL (32.0-36.0); MEAN CORPUSCULAR VOLUME 93.5 fL (81.0-99.0); MONOCYTES # (AUTO) 0.4 10^3/uL (0.0-1.0); MONOCYTES % (AUTO) 7.7 %; NEUTROPHILS # (AUTO) 2.5 10^3/uL (1.5-6.6); NEUTROPHILS % (AUTO) 50.8 %; PLT - PLATELET COUNT 223 10^3/uL (130-450); RED BLOOD COUNT 3.83 10^6/uL (4.20-5.40); RED CELL DISTRIBUTION WIDTH 12.2 % (12.0-15.0); WHITE BLOOD COUNT 4.9 x10^3/uL (4.8-10.8)
[2023-02-22 10:21] LABS: ALBUMIN 4.6 g/dL (3.2-5.5); ALKALINE PHOSPHATASE 78 IU/L (42-121); ALT ALANINE AMINOTRANSFERASE 19 IU/L (10-60); AST ASPARTATE AMINOTRANSFERASE 20 IU/L (10-42); BILIRUBIN,TOTAL 0.4 mg/dL (0.2-1.0); BUN - BLOOD UREA NITROGEN 14 mg/dL (6-20); CALCIUM 10.2 mg/dL (8.5-10.3); CARBON DIOXIDE - CO2 29 mmol/L (21-32); CHLORIDE 102 mmol/L (101-111); CHOL/HDL RATIO 3.3 (<4.4); CHOLESTEROL 224 mg/dL; CREATININE 0.6 mg/dL (0.6-1.3); GFR - MDRD 96 (>89); GLUCOSE 93 mg/dL (74-104); HDL CHOLESTEROL 67 mg/dL; LDL CHOLESTEROL,CALCULATED 125 mg/dL; LDL/HDL RATIO 1.9 (<4.4); POTASSIUM 3.8 mmol/L (3.5-4.5); SODIUM 136 mmol/L (135-145); TOTAL PROTEIN 6.9 g/dL (6.4-8.9); TRIGLYCERIDES 158 mg/dL (48-352); VLDL CHOLESTEROL 32 mg/dL
[2023-02-22 10:37] LABS: THYROID STIMULATING HORMONE 1.59 uIU/mL (0.34-5.60)
== END 2023-02-22 09:52 | disposition home or self-care (01) ==
LOC: LAB 09:51
PROVIDERS: ATTEND Physician Assistant Medical
DX: E78.2 Mixed hyperlipidemia (principal); E03.9 Hypothyroidism, unspecified; K21.9 Gastro-esophageal reflux disease without esophagitis; M32.9 Systemic lupus erythematosus, unspecified
CPT/HCPCS: 36415; 80053; 80061; 83721; 84443; 85025; 85651

== ENCOUNTER 2023-12-09 13:46 | Outpatient (CLI) | payer MEDICARE, OTHER ==
--- NOTE | 2023-12-09 14:43 | XRAY Report ---
PROCEDURE: Abdomen 2 V INDICATIONS: ABDOMINAL PAIN TECHNIQUE: 2 views of the abdomen were acquired. COMPARISON: None. FINDINGS: Surgical changes and devices: Post fusion changes are seen in lower lumbar spine at L4-5 level.. Bowel: No pneumoperitoneum. The bowel gas pattern is normal. Moderate fecal stasis throughout the c olon is seen. Soft tissues: No masses; visualized solid organ contours appear normal in size. No suspicious abdom inal calcifications. Bones: No suspicious bony abnormalities. IMPRESSION: Moderate constipation. No gross free air. No abnormal renal calcifications. Reviewed by: Ellis Newton MD on 12/09/2023 2:41 PM PDT Approved by: Ellis Newton MD on 12/09/2023 2:41 PM PDT Station ID: [id number]
== END 2023-12-09 13:47 | disposition home or self-care (01) ==
LOC: DI 13:46
PROVIDERS: ATTEND Physician Assistant Medical
DX: R10.31 Right lower quadrant pain (principal); K59.00 Constipation, unspecified

== ENCOUNTER 2024-01-14 13:16 | Outpatient (CLI) | payer MEDICARE, OTHER ==
[2024-01-14 13:45] LABS: CREATININE 0.8 mg/dL (0.6-1.3)
[2024-01-14] MEDS: iohexoL-300 100 ML VIAL IVP ONE (15:57)
[2024-01-14] MEDS: DIATRIZOATE MEGLU/DIATRIZO SOD 30 ML BOTTLE PO ONE (15:58)
--- NOTE | 2024-01-14 20:01 | CT Report ---
PROCEDURE: Abdomen/Pelvis W INDICATIONS: RLQ ABD PAIN CONTRAST: Omni 300 100ml TECHNIQUE: After the administration of intravenous contrast, a CT scan of the abdomen and pelvis was performed. Images were recorded and evaluated at appropriate window settings. Reformats: coronal and sagittal. F or radiation dose reduction, the following was used: automated exposure control, adjustment of mA and /or kV according to patient size. COMPARISON: CT angiogram of the abdomen dated 06/10/2017. FINDINGS: Image quality: Diagnostic. Lower chest: Unremarkable. Liver: No solid mass. Gallbladder: No radiopaque stones or wall thickening. Biliary tree: No intrahepatic or extrahepatic dilation, accounting for age. Spleen: No splenomegaly. Pancreas: No pancreatic ductal dilation. Adrenals: No adrenal nodule. Kidneys and ureters: No hydronephrosis. No renal cystic lesion which requires follow up. No solid mas s. Stomach, bowel and peritoneum: No gastric or small bowel dilation. No abnormal wall thickening. No pa thologic free fluid. There is fecalization of contents in the ileum suggesting prolonged transit. No thickened loops are dilated loops are identified. Moderately large diffuse fecal load. Lymph nodes: No central or retroperitoneal adenopathy. Vessels: No infrarenal aortic aneurysm. Patent portal vein. PELVIS Reproductive organs: Uterus is surgically absent.. Bladder: No abnormal wall thickening, accounting for underdistention. Pelvic lymph nodes: No pelvic adenopathy by size criteria. Bones: No aggressive osseous abnormality. Other: No significant ventral or inguinal hernia. IMPRESSION: 1. No acute abdominal process. 2. No findings which explain right lower quadrant pain. 3. Findings suggest delayed transit of contents through the small bowel and colon. 4. Uterus is surgically absent Reviewed by: Carlo Mcdonald MD on 01/14/2024 7:59 PM PDT Approved by: Carlo Mcdonald MD on 01/14/2024 7:59 PM PDT Station ID: [id number]
== END 2024-01-14 13:17 | disposition home or self-care (01) ==
LOC: LAB 13:16
PROVIDERS: ATTEND Physician Assistant Medical
DX: R10.31 Right lower quadrant pain (principal); Z90.710 Acquired absence of both cervix and uterus
CPT/HCPCS: 36415; 82565